=== PATIENT | female | born 1980 | race American Indian/Alaskan Native ===

== ENCOUNTER 2017-03-06 20:01 | Emergency (ER) | payer OTHER ==
[2017-03-06 20:46] LABS: Basophils % (Auto) 0.3 % (0.0-1.8); Eosinophils % (Auto) 1.2 % (0.0-4.3); Hematocrit 38.1 % (30.3-42.9); Hemoglobin 12.3 gm/dl (10.1-14.3); Mean Corpuscular HGB Conc 32 % (30-34); Mean Corpuscular Hemoglobin 26 pg (28-32); Mean Corpuscular Volume 80 fl (79-97); Platelet Count 343 K/mm3 (140-440); Red Blood Count 4.74 M/mm3 (3.65-5.03); White Blood Count 7.2 K/mm3 (4.5-11.0)
[2017-03-06 20:56] LABS: Anion Gap 21 mmol/L; Blood Urea Nitrogen 9 mg/dL (7-17); Calcium 9.2 mg/dL (8.4-10.2); Carbon Dioxide 22 mmol/L (22-30); Chloride 94.6 mmol/L (98-107); Glucose 267 mg/dL (65-100); Sodium 134 mmol/L (137-145)
[2017-03-06 21:15] LABS: Bilirubin,Urine NEG (Negative); Blood,Urine NEG (Negative); Ketones,Urine TR mg/dL (Negative); Leukocyte Esterase,Urine NEG (Negative); Nitrite,Urine NEG (Negative); Protein,Urine <15 mg/dL mg/dL (Negative); Urobilinogen,Urine < 2.0 mg/dL (<2.0)
[2017-03-06] MEDS ORDERED: NACL 0.9% 1000 ML 1,000 ML IV ONE (22:02)
--- NOTE | 2017-03-07 01:10 | Emergency Department Report ---
HPI - General Chief Complaint: Hyperglycemia Time Seen by Provider: 03/06/17 22:01 - HPI HPI: The patient is a 36 yo , EGA 6 weeks, with a history of gestational diabetes , who presents for evaluation of polyuria. The patient states that for >1 week she has experienced constant and severe polyuria and uncontrolled blood sugar with oral hypoglycemics. The patient denies fever, chills, night sweats, chest pain, dyspnea, vomiting, blood in the stool, diarrhea, blood in the stool, dark tarry stool, dysuria, hematuria, flank pain, genital discharge, inability to pass flatus. ED Past Medical Hx - Past Medical History Hx Diabetes: Yes Hx Headaches / Migraines: Yes - Surgical History Past Surgical History?: No - Social History Smoking Status: Never Smoker Substance Use Type: None ED Review of Systems ROS: Stated complaint: PREG 9WEEKS/HIGH GLUCOSE Other details as noted in HPI Constitutional: denies: fever ENT: denies: throat or neck pain Respiratory: denies: cough, shortness of breath Cardiovascular: denies: chest pain Endocrine: reports polyuria denies unexplained weight loss or gain Gastrointestinal: denies: abdominal pain, nausea Genitourinary: denies: dysuria Musculoskeletal: denies: leg swelling Skin: denies: rash Neurological: denies: headache Hematological/Lymphatic: denies: easy bleeding or easy bruising Psych: denies sadness or hopelessness Physical Exam - Physical Exam Vital Signs: Vital Signs 03/06/17 03/06/17 03/06/17 20:14 21:36 23:12 Temperature 98.2 F Pulse Rate 89 82 Respiratory 18 18 17 Rate Blood Pressure 121/76 O2 Sat by Pulse 100 99 100 Oximetry 03/06/17 03/06/17 03/06/17 23:16 23:30 23:46 Temperature Pulse Rate 89 80 83 Respiratory 23 16 13 Rate Blood Pressure 123/69 123/69 123/69 O2 Sat by Pulse 100 100 100 Oximetry 03/07/17 03/07/17 03/07/17 00:00 00:12 00:16 Temperature Pulse Rate 81 85 90 Respiratory 22 21 18 Rate Blood Pressure 112/67 112/67 112/67 O2 Sat by Pulse 100 100 100 Oximetry Physical Exam: General: well-nourished, well-developed, no acute distress Head: Normocephalic, atraumatic Eyes: normal sclera ENT: Mucous membranes are pale and dry Neck: No neck stiffness, no cervical adenopathy Respiratory: Breath sounds equal bilaterally, no wheezing, rales, or rhonchi Cardio: S1 and S2 present, no murmurs, rubs, gallops, capillary refill is delayed Abdomen: Normoactive bowel sounds, soft abdomen, no rigidity, no guarding or rebound tenderness Musc: No pitting edema Skin: No rash Neuro: no facial drooping, normal speech Psych: Normal affect ED Course Vital Signs 03/06/17 03/06/17 03/06/17 20:14 21:36 23:12 Temperature 98.2 F Pulse Rate 89 82 Respiratory 18 18 17 Rate Blood Pressure 121/76 O2 Sat by Pulse 100 99 100 Oximetry 03/06/17 03/06/17 03/06/17 23:16 23:30 23:46 Temperature Pulse Rate 89 80 83 Respiratory 23 16 13 Rate Blood Pressure 123/69 123/69 123/69 O2 Sat by Pulse 100 100 100 Oximetry 03/07/17 03/07/17 03/07/17 00:00 00:12 00:16 Temperature Pulse Rate 81 85 90 Respiratory 22 21 18 Rate Blood Pressure 112/67 112/67 112/67 O2 Sat by Pulse 100 100 100 Oximetry ED Medical Decision Making - Lab Data Result diagrams: 03/06/17 20:25 03/06/17 20:25 - Medical Decision Making The patient was seen and examined by myself. The patient is placed on a quality assurance monitor and continuous pulse ox. On initial evaluation, the patient was found to be in no distress. Evaluation orders were placed. The patient is given 1 L normal saline fluid bolus for treatment of dehydration. The patient is given 5 units of insulin IV for treatment of her hyperglycemia. Lab results revealed blood sugar 260, with normal bicarbonate and anion gap, not consistent with DKA, and otherwise were grossly unremarkable. A repeat Accu-Chek is performed and the patient's found to have normal blood sugar of 148. Dr. Wright the [facility] [employer] on-call for the patient's MFM group was contacted. She submitted that the patient does not require inpatient admission and is stable for follow-up outpatient. The patient was reevaluated and reported that their symptoms were improved. The patient is stable for discharge with outpatient follow-up. The patient is given follow-up and return instructions. The patient expressed understanding and agreed with the plan. The patient is discharged in stable condition. Critical care attestation.: If time is entered above; I have spent that time in minutes in the direct care of this critically ill patient, excluding procedure time. ED Disposition Clinical Impression: Acute hyperglycemia, Dehydration Gestational diabetes mellitus Qualifiers: Gestational diabetes mellitus control: oral hypoglycemic-controlled Trimester: first trimester Qualified Code(s): O24.415 - Gestational diabetes mellitus in , controlled by oral hypoglycemic drugs Disposition: DISCHARGED TO HOME OR SELFCARE Is pt being admited?: No Does the pt Need Aspirin: No Condition: Stable Instructions: Diabetes Mellitus Type 2 in Adults (ED), Gestational Diabetes (ED ), Dehydration (ED) Referrals: NICOLE WRIGHT MD [Staff Physician] - 3-5 Days Time of Disposition: 01:04
[2017-03-07 01:34] VITALS: BP 108/55
== END 2017-03-07 01:30 | disposition home or self-care (01) ==
LOC: ED 20:01
DX: O24.415 Gestational diabetes mellitus in pregnancy, controlled by oral hypoglycemic drugs (principal); E86.0 Dehydration; Z3A.01 Less than 8 weeks gestation of pregnancy; G43.909 Migraine, unspecified, not intractable, without status migrainosus
CPT/HCPCS: 36415; 80048; 81001; 82805; 82962; 85025; 96361; 96374; 99284; J7030; J1815

== ENCOUNTER 2017-10-08 21:08 | Inpatient (IN) | payer OTHER ==
[2017-10-08] MEDS ORDERED: LACTATED RINGERS 1,000 ML IV SCH (23:45)
[2017-10-08] MEDS ORDERED: STADOL IV PRN (23:54)
[2017-10-08] MEDS ORDERED: CERVIDIL VG ONE (23:54)
[2017-10-08] MEDS ORDERED: AMBIEN PO PRN (23:54)
[2017-10-09 01:16] LABS: Hematocrit 30.1 % (30.3-42.9); Mean Corpuscular HGB Conc 33 % (30-34); Mean Corpuscular Volume 76 fl (79-97); Platelet Count 293 K/mm3 (140-440); Red Blood Count 3.98 M/mm3 (3.65-5.03); Red Cell Distribution Width 14.7 % (13.2-15.2)
[2017-10-09 01:29] LABS: Mean Corpuscular Hemoglobin 25 pg (28-32)
[2017-10-09] MEDS ORDERED: D5LR 1,000 ML IV ONE (06:26)
[2017-10-09] MEDS ORDERED: D5LR 1,000 ML IV SCH (06:36)
[2017-10-09] MEDS ORDERED: ePHEDrine SULFATE IV PRN ×2 (11:09→20:26)
[2017-10-09] MEDS ORDERED: XYLOCAINE 2% INFILTRATI ONE (11:09)
[2017-10-09] MEDS ORDERED: BRETHINE SUB-Q PRN (11:09)
[2017-10-09] MEDS ORDERED: BRETHINE IVP PRN (11:09)
[2017-10-09] MEDS ORDERED: MINERAL OIL PO PRN (11:09)
[2017-10-09] MEDS ORDERED: PITOCin/NS 20 UNIT/1000ML DRIP 20 UNITS/1,000 ML BAG IV SCH (12:00)
[2017-10-09] MEDS ORDERED: PITOCin/NS 30 UNIT/500ML 30 UNITS/500 ML BAG IV SCH (13:00)
[2017-10-09] MEDS: LACTATED RINGERS 1,000 ML IV SCH ×3 (15:28→21:58)
[2017-10-09] MEDS: SUBLIMAZE IV PRN (18:38)
--- NOTE | 2017-10-09 19:12 | History and Physical Report ---
History of Present Illness Date of examination: 10/08/17 Date of admission: 10/08/17 21:08 Chief complaint: I'm here for induction History of present illness: Patient is a 37 year old who presents for induction of labor at 38 weeks with EDc 10/23/2017. course complicated by the following: AMA, history of labor and type 2 diabetes.. Patient has had moderate control and has been on insulin since 22 weeks. She entered care at 8 weeks. Patient had initial delivery at 24 weeks and did not survive. Past History Past Medical History: diabetes Past Surgical History: cholecystectomy [employer]PRESENTATIVE History: herpes Social history: - Obstetrical History Expected Date of Delivery: 10/22/17 Actual Gestation: 38 Week(s) 5 Day(s) : 2 Para: 1 Number of Pregnancies: 1 Number of Living Children: 0 Medications and Allergies Allergies Allergy/AdvReac Type Severity Reaction Status Date / Time No Known Allergies Allergy Verified 10/08/17 23:57 Home Medications Medication Instructions Recorded Confirmed Last Taken Type Aspirin 1 tab PO DAILY 10/09/17 10/09/17 1 Day Ago History ~10/08/17 Insulin Aspart Prot/Aspart(Nf) 40 units SQ QAM 10/09/17 10/09/17 1 Day Ago History [Novolog Mix 70/30] ~10/08/17 NovoLIN N 50 unit SQ DAILY 10/09/17 10/09/17 1 Day Ago History ~10/08/17 Vit,Calc76/Iron/Folic 1 each PO DAILY 10/09/17 10/09/17 1 Day Ago History [Pnv 29-1 Tablet] ~10/08/17 Valtrex 1 tab PO DAILY 10/09/17 10/09/17 1 Day Ago History ~10/08/17 Docusate Sodium [Colace] 100 mg PO BID PRN #60 capsule 10/11/17 Unknown Rx Ferrous Sulfate [Feosol 325 MG tab] 325 mg PO BID #60 tablet 10/11/17 Unknown Rx Ibuprofen [Motrin] 800 mg PO Q8HR PRN #40 tablet 10/11/17 Unknown Rx Oxycodone HCl/Acetaminophen 1 each PO Q6HR PRN #50 tablet 10/11/17 Unknown Rx [Percocet 7.5/325 mg] Active Meds: Active Medications Butorphanol Tartrate (Stadol) 2 mg IV Q2H PRN PRN Reason: Labor Pain Last Admin: 10/09/17 16:01 Dose: 2 mg Ephedrine Sulfate (Ephedrine Sulfate) 10 mg IV Q2M PRN PRN Reason: Hypotension Fentanyl (Sublimaze) 100 mcg IV Q2H PRN PRN Reason: Labor Pain Last Admin: 10/09/17 18:38 Dose: 100 mcg Dextrose/Lactated Ringer's (D5lr) 1,000 mls @ 125 mls/hr IV DIRECT NORMA Lactated Ringer's (Lactated Ringers) 1,000 mls @ 125 mls/hr IV DIRECT NORMA Last Admin: 10/09/17 15:28 Dose: 125 mls/hr Oxytocin/Sodium Chloride (Pitocin/Ns 20 Unit/1000ml Drip) 20 units in 1,000 mls @ 125 mls/hr IV DIRECT NORMA Oxytocin/Sodium Chloride (Pitocin/Ns 30 Unit/500ml) 30 units in 500 mls @ 2 mls /hr IV TITR NORMA PRN Reason: Protocol Last Titration: 10/09/17 18:02 Dose: 10 ml/hr, 10 mls/hr Mineral Oil (Mineral Oil) 30 ml PO QHS PRN PRN Reason: Constipation Terbutaline Sulfate (Brethine) 0.25 mg SUB-Q ONCE PRN PRN Reason: Hyperstimulation/Hypertonicity Terbutaline Sulfate (Brethine) 0.25 mg IVP ONCE PRN PRN Reason: Hyperstimulation/Hypertonicity Zolpidem Tartrate (Ambien) 10 mg PO QHS PRN PRN Reason: Insomnia Last Admin: 10/09/17 00:55 Dose: 10 mg - Vital Signs Vital signs: Vital Signs Pulse BP 118 H 132/84 10/08/17 22:05 10/08/17 22:05 Temp Pulse Resp BP Pulse Ox 97.5 F L 92 H 18 124/75 94 10/09/17 17:32 10/09/17 15:31 10/09/17 18:38 10/09/17 15:31 10/09/17 02:41 - Physical Exam Breasts: Cardiovascular: Regular rate, Normal S1, Normal S2 Lungs: Positive: Clear to auscultation, Normal air movement Abdomen: Positive: normal appearance, soft, normal bowel sounds. Negative: distention, tenderness Genitourinary (Female): Positive: normal external genitalia, normal perenium Vulva: both: normal Vagina: Positive: normal moisture. Negative: discharge Cervix: Negative: lesion, discharge Uterus: Positive: normal size, normal contour Adnexa: both: normal Anus/Rectum: Positive: normal perianal skin, heme negative. Negative: rectal mass, hemorrhoids Extremities: Deep Tendon Reflex Grade: Normal +2 - Obstetrical Cervical Dilatation: 0.5 Cervical Effacement Percentage: 50 station: -3 Uterine Contraction Pattern: Irregular Results Result Diagrams: 10/10/17 19:22 Abnormal lab results 10/08/17 10/09/17 10/09/17 Range/Units 00:25 05:56 07:44 Hgb 10.0 L (10.1-14.3) gm/dl Hct 30.1 L (30.3-42.9) % MCV 76 L (79-97) fl MCH 25 L (28-32) pg POC Glucose 43 L 116 H (70-105) All other labs normal. Assessment and Plan IUP at 38 weeks for induction of labor due to type 2 diabetes. Admit for induction. Place cervidil. Anticipate .
--- NOTE | 2017-10-09 20:25 | Anesthesia Consultation ---
Anesthesia Consult and Med Hx Date of service: 10/09/17 - Airway Anesthetic Teeth Evaluation: Good ROM Head & Neck: Adequate Mental/Hyoid Distance: Adequate Mallampati Class: Class II Intubation Access Assessment: Good - Pulmonary Exam CTA: Yes - Cardiac Exam Cardiac Exam: No Murmur - Pre-Operative Health Status ASA Pre-Surgery Classification: ASA2 Proposed Anesthetic Plan: Epidural - Pulmonary Hx Asthma: No COPD: No Hx Pneumonia: No - Cardiovascular System Hx Hypertension: No - Central Nervous System Hx Seizures: No Hx Psychiatric Problems: No - Endocrine Hx Renal Disease: No Hx End Stage Renal Disease: No Hx Hypothyroidism: No Hx Hyperthyroidism: No - Hematic Hx Anemia: No Hx Sickle Cell Disease: No - Other Systems Hx Alcohol Use: No
[2017-10-09] MEDS ORDERED: NARCAN 2 MG/2 ML IV PRN (20:26)
[2017-10-09] MEDS: fentaNYL-BUPIV 2 MCG/ML-0.125% 200 MCG/100 ML BAG EPIDURAL SCH (20:40)
[2017-10-10] MEDS ORDERED: XYLOCAINE 2% INFILTRATI ONE ×2 (02:06→03:55)
[2017-10-10] MEDS: fentaNYL-BUPIV 2 MCG/ML-0.125% 200 MCG/100 ML BAG EPIDURAL SCH (03:57)
[2017-10-10] MEDS: SUBLIMAZE IV PRN (04:56)
[2017-10-10] MEDS: LACTATED RINGERS 1,000 ML IV SCH ×2 (05:39→17:24)
[2017-10-10] MEDS ORDERED: BICITRA PO ONE (06:24)
[2017-10-10] MEDS ORDERED: PEPCID IV ONE (06:24)
[2017-10-10] MEDS ORDERED: REGLAN IV ONE (06:24)
--- NOTE | 2017-10-10 06:24 | Event Note ---
Date: 10/10/17 Patient AROM at 1835 last evening and progressed to 9cm. Patient's pain control has been inconsistent. Patient is now exhauseted and stressed to due too much pain and is requesting a . Will proceed with same for failure to progress.
[2017-10-10] MEDS ORDERED: ANCEF/STERILE WATER 2 GM/20 ML IV ONE (06:52)
[2017-10-10] MEDS ORDERED: ANCEF/STERILE WATER 2 GM/20 ML 2 GM/20 ML SYRINGE IV NR (07:00)
[2017-10-10] MEDS ORDERED: PITOCin/NS 20 UNIT/1000ML DRIP 20 UNITS/1,000 ML BAG IV SCH ×2 (07:00→10:24)
[2017-10-10] MEDS ORDERED: LACTATED RINGERS 1,000 ML IV SCH (07:00)
[2017-10-10] MEDS ORDERED: WATER FOR IRRIG STERILE IR ONE (07:05)
[2017-10-10] MEDS ORDERED: NACL 0.9% IR ONE (07:05)
[2017-10-10] MEDS ORDERED: XYLOCAINE MPF 2% ONE ×4 (07:10)
[2017-10-10] MEDS ORDERED: SUBLIMAZE ONE (07:24)
[2017-10-10] MEDS ORDERED: VERSED ONE (07:48)
[2017-10-10] MEDS ORDERED: NEO SYNEPHRINE/NS Syringe(OR USE) IV ONE (07:49)
[2017-10-10] MEDS ORDERED: ZOFRAN ONE (07:52)
[2017-10-10] MEDS ORDERED: TORADOL ONE (07:52)
[2017-10-10] MEDS ORDERED: MORPHINE ONE ×2 (07:53)
--- NOTE | 2017-10-10 08:22 | Procedure Note ---
OB Delivery Note - Delivery Date of Delivery: 10/10/17 Surgeon: KENN BRUNSON Crystal Finisher: BRIELLE HICKMAN Estimated blood loss: other (700) - Section Preop diagnosis: arrest of descent Postop diagnosis: same section procedure: primary low transverse, other (myomectomy) Disposition: PACU Narrative: see op report - Infant A at 1 minute: 8 at 5 minutes: 9 Infant Gender: Female (9 pounds 1 ounce 4117g)
[2017-10-10] MEDS ORDERED: NARCAN 0.4 MG/1 ML IV PRN ×2 (08:33→10:24)
--- NOTE | 2017-10-10 08:48 | Post Anesthesia Evaluation ---
- Post Anesthesia Evaluation Patient Participated: Yes Airway Patent: Yes Stable Respiratory Function: Yes Nausea/Vomiting: No Temp > 96.8F: Yes Pain Manageable: Yes Adequeate Hydration: Yes Anesthesia Complications: No Block Receding Appropriately: Yes Patient on Ventilator: No
[2017-10-10] MEDS ORDERED: BENADRYL IV PRN (08:49)
[2017-10-10] MEDS ORDERED: SODIUM CHLORIDE FLUSH SYRINGE 10 ML IV NR ×2 (09:00→10:24)
[2017-10-10] MEDS ORDERED: DILAUDID PCA 6MG/30ML IV SCH (09:00)
[2017-10-10] MEDS ORDERED: TUCKS PAD TP PRN (10:24)
[2017-10-10] MEDS ORDERED: ZOFRAN IV PRN (10:24)
[2017-10-10] MEDS ORDERED: LANSINOH TP PRN (10:24)
[2017-10-10] MEDS ORDERED: MYLICON PO PRN (10:24)
[2017-10-10 19:40] LABS: Hemoglobin 7.5 gm/dl (10.1-14.3)
[2017-10-11] MEDS: LACTATED RINGERS 1,000 ML IV SCH (00:11)
[2017-10-11] MEDS: MORPHINE IV PRN ×2 (08:15→14:35)
[2017-10-11] MEDS: PERCOCET 5/325 PO PRN ×3 (08:30→17:42)
--- NOTE | 2017-10-11 11:10 | Progress Note ---
Subjective Date of service: 10/11/17 Interval history: No anesthetic related complaints. Objective - Constitutional Vitals: Vital Signs - 12hr 10/11/17 10/11/17 10/11/17 00:12 00:56 01:19 Temperature 98.5 F Pulse Rate 125 H 100 H Respiratory 18 20 20 Rate Blood Pressure 137/74 O2 Sat by Pulse Oximetry 10/11/17 10/11/17 10/11/17 04:17 05:29 06:35 Temperature 99.0 F Pulse Rate 112 H Respiratory 20 20 20 Rate Blood Pressure 121/71 O2 Sat by Pulse 94 Oximetry 10/11/17 08:22 Temperature 98.4 F Pulse Rate 112 H Respiratory 18 Rate Blood Pressure 132/83 O2 Sat by Pulse 97 Oximetry - Labs CBC & Chem 7: 10/10/17 19:22 Labs: Abnormal lab results 10/10/17 10/10/17 10/10/17 Range/Units 15:27 19:22 21:31 Hgb 7.5 L (10.1-14.3) gm/dl Hct 24.0 L D (30.3-42.9) % POC Glucose 196 H 151 H (70-105)
[2017-10-11] MEDS: MOTRIN PO PRN ×2 (12:28→20:44)
[2017-10-11] MEDS: PRENATAL VITAMIN PO SCH (17:36)
[2017-10-11] MEDS: FEOSOL PO SCH (17:36)
[2017-10-11] MEDS: MILK OF MAGNESIA PO PRN (20:44)
--- NOTE | 2017-10-11 21:14 | Progress Note ---
Assessment and Plan PPD 1 s/p . Doing well except for no flatus. Will continue simethicone and possible suppository to help pass gas. Subjective - Subjective Date of service: 10/11/17 Interval history: Patient is a 37 year old who presents for induction of labor at 38 weeks with EDc 10/23/2017. course complicated by the following: AMA, history of labor and type 2 diabetes.. Patient has had moderate control and has been on insulin since 22 weeks. She entered care at 8 weeks. Patient had initial delivery at 24 weeks and infant did not survive. Patient reports: appetite normal, voiding normally, pain well controlled, ambulating normally : doing well Objective - Vital Signs Latest vital signs: Vital Signs Temp Pulse Resp BP Pulse Ox 10/11/17 20:44 18 10/11/17 17:13 97.5 F L 101 H 18 125/80 97 10/11/17 11:37 98.8 F 108 H 18 100/65 96 10/11/17 08:22 98.4 F 112 H 18 132/83 97 10/11/17 06:35 99.0 F 112 H 20 121/71 94 10/11/17 05:29 20 10/11/17 04:17 20 10/11/17 01:19 100 H 20 10/11/17 00:56 98.5 F 125 H 20 137/74 10/11/17 00:12 18 10/10/17 22:36 120 H 20 Intake and Output 10/11/17 10/11/17 10/11/17 06:59 14:59 22:59 Intake Total 847.917 280 Output Total 350 Balance 497.917 280 Intake: IV 847.917 Lactated Ringers 1,000 ml 847.917 @ 125 mls/hr IV DIRECT NORMA Rx#:[id number] Oral 280 Output: Urine 350 Void 350 Other: Total, Intake Amount 280 Total, Output Amount 350 # Voids Indwelling Catheter 1 - Exam Cardiovascular: Present: Regular rate, Normal S1, Normal S2 Lungs: Present: Clear to auscultation, Normal air movement Abdomen: Present: normal appearance, distention, normal bowel sounds Uterus: Present: normal, firm. Absent: fundal height below umbilicus Extremities: Present: normal Incision: Present: normal, dry, intact - Labs Labs: Abnormal lab results 10/10/17 10/11/17 Range/Units 21:31 10:55 POC Glucose 151 H 120 H (70-105)
[2017-10-12] MEDS: PERCOCET 5/325 PO PRN ×3 (00:23→19:45)
[2017-10-12] MEDS ORDERED: M-M-R II VACCINE SUB-Q ONE (06:00)
[2017-10-12] MEDS ORDERED: BOOSTRIX IM ONE (06:00)
[2017-10-12] MEDS: MOTRIN PO PRN ×2 (06:48→15:49)
[2017-10-12] MEDS: PRENATAL VITAMIN PO SCH ×2 (10:59→11:00)
[2017-10-12] MEDS: FEOSOL PO SCH (11:00)
[2017-10-12] MEDS: MILK OF MAGNESIA PO PRN (15:52)
[2017-10-13] MEDS: PERCOCET 5/325 PO PRN (04:10)
[2017-10-13] MEDS: MOTRIN PO PRN (04:11)
--- NOTE | 2017-10-13 09:14 | Progress Note ---
Assessment and Plan POD 3 s/p ltcs. Doing well. Continue routine care. Plan for discharge on today. Subjective - Subjective Date of service: 10/13/17 Interval history: Patient is a 37 year old who presents for induction of labor at 38 weeks with EDc 10/23/2017. course complicated by the following: AMA, history of labor and type 2 diabetes.. Patient has had moderate control and has been on insulin since 22 weeks. She entered care at 8 weeks. Patient had initial delivery at 24 weeks and did not survive. Patient reports: appetite normal, voiding normally, pain well controlled, flatus , bowel movement, ambulating normally [place]: doing well Objective - Vital Signs Latest vital signs: Vital Signs Temp Pulse Resp Resp BP Pulse Ox 10/13/17 01:39 98.2 F 104 H 20 116/69 98 10/12/17 20:00 18 10/12/17 16:25 98.5 F 100 H 20 130/83 99 10/12/17 15:49 18 10/12/17 15:48 20 Intake and Output 10/12/17 10/13/17 10/13/17 22:59 06:59 14:59 Intake Total 240 Balance 240 Intake: Oral 240 Other: Total, Intake Amount 240 Voiding Method Toilet # Voids Void 1 - Exam Cardiovascular: Present: Regular rate, Normal S1, Normal S2 Lungs: Present: Clear to auscultation, Normal air movement Abdomen: Present: normal appearance, soft Extremities: Present: normal Incision: Present: normal, dry, intact - Labs Labs: Abnormal lab results 10/12/17 Range/Units 12:42 POC Glucose 112 H (70-105)
--- NOTE | 2017-10-13 09:17 | Discharge Summary ---
Providers - Providers Date of Admission: 10/08/17 21:08 Date of discharge: 10/13/17 Attending physician: KENN BRUNSON Primary care physician: KENN BRUNSON Hospitalization Reason for admission: induction of labor, other (type 2 diabetes) Delivery: Procedure: primary low transverse Incision: normal, dry, intact Other procedures: none complications: none Discharge diagnosis: IUP at term delivered [place] baby: female Hospital course: unremarkable Condition at discharge: Good Disposition: DC-01 TO HOME OR SELFCARE Plan - Discharge Medications Prescriptions: Docusate Sodium [Colace] 100 mg PO BID PRN #60 capsule PRN Reason: Constipation Ferrous Sulfate [Feosol 325 MG tab] 325 mg PO BID #60 tablet Ibuprofen [Motrin] 800 mg PO Q8HR PRN #40 tablet PRN Reason: Pain Oxycodone HCl/Acetaminophen [Percocet 7.5/325 mg] 1 each PO Q6HR PRN #50 tablet PRN Reason: Pain - Provider Discharge Summary Activity: routine, no sex for 6 weeks, no heavy lifting 4 weeks, no strenuous exercise Diet: routine Instructions: other (continue to check and record blood sugar at home) Additional instructions: [] Smoking cessation referral if applicable(refer to patient education folder for contact #) [] Refer to [facility] Booklet Call your doctor immediately for: * Fever > 100.5 * Heavy vaginal bleeding ( >1 pad per hour) * Severe persistent headache * Shortness of breath * Reddened, hot, painful area to leg or breast * Drainage or odor from incision. * Keep incision clean and dry at all times and follow doctor's instructions regarding bathing/showering - Follow up plan Follow up: KENN BRUNSON MD [Primary Care Provider] - 7 Days
[2017-10-13 13:43] VITALS: BP 115/76
--- NOTE | 2017-10-14 12:37 | Operative Report ---
Operative Report Operative Report: The operative report for patient Kayce Boyd Date of service 10/10/2017 Preoperative diagnosis: Intrauterine at 38 2/7 weeks 2. Type 2 diabetes moderately controlled 3 Arrest of descent 4. Failed induction 5. Multiple uterine fibroids Postoperative diagnosis: Same Procedure:1. Primary low transverse section 2. Myomectomy of subserosal fibroid Surgeon: Dr. Luann Howe EBL: 700 Urine output: 100 IV fluids: 1200 Findings: Viable female in the vertex occiput posterior position. Weight 9 lbs. 1oz. 3576 g . Multiple uterine fibroids Specimens: 5 cm subserosal fibroid Complications: None Procedure: The patient was admitted to the OR with IV running and in place. She was properly identified as herself. Her spinal had been placed in the room and she was already under the effects of anesthesia upon entry into the OR. She was placed in the dorsal supine position with a leftward tilt. A Shook catheter was inserted prior to coming to the OR. She was then prepped and draped in the normal sterile fashion. An Allis test was used to confirm adequate anesthesia. Once confirmed, the incision was made with the scalpel and carried to the underlying fascia using the scalpel and the Bovie. The fascia was incised in the midline and incision was extended bilaterally using the curved Pérez scissors. The fascia was then dissected from the underlying rectus muscles in a series of sharp and blunt dissection using the Pérez scissors. Muscles were in the in the midline sharply using Metzenbaum scissors and the peritoneum was entered into bluntly using the surgeon's fingers. A bladder blade was then placed into the incision to protect the bladder. Following this the bladder flap was created. Hysterotomy incision was then made in the scalpel. Upon uterine entry, the amniotic sac was ruptured for clear fluid. The was then delivered in the occiput [ posterior] position. Her mouth and nose were suctioned on the field. The cord was clamped and cut and he was handed to the waiting NICU personnel. The uterus was then exteriorized and cleared of all clots and debris. The hysterotomy incision was then closed in a running locked fashion using 0 Vicryl in 2 layers. The abdomen was then copiously irrigated with warm normal saline. A large subserosal fibroid was noted to be inhibiting placement of the uterus back into the cavity. Multiple thin adhesions of the omentum were then lysed from the surface of the fibroid. The base of the fibroid was then crossclamped with Mary Kate clamps and then amputated. The underlying serosa was incised in a baseball stitch with 2-0 Vicryl. Following this the uterus was replaced into the abdominal cavity. At this point the muscles were reapproximated in the midline using individual sutures of 0 Vicryl. Following this the fascia was closed in a running fashion using 0 Vicryl. Tissue was then copiously irrigated. Skin was closed in a running fashion using 3-0 Monocryl. The sponge lap needle and instrument counts were correct 2. The patient tolerated the procedure well. She was taken to recovery in stable condition.
== END 2017-10-13 12:00 | disposition home or self-care (01) | DRG 766 ==
LOC: LD 21:08 → OB 10-10 09:48
PROVIDERS: ADMIT Obstetrics & Gynecology; ATTEND Obstetrics & Gynecology
PROC: 10D00Z1 Extraction of Products of Conception, Low, Open Approach (ICD-10-PCS; principal; 2017-10-10)
PROC: 0UB90ZZ Excision of Uterus, Open Approach (ICD-10-PCS; 2017-10-10)
PROC: 3E0234Z Introduction of Serum, Toxoid and Vaccine into Muscle, Percutaneous Approach (ICD-10-PCS; 2017-10-12)
DX: O24.92 Unspecified diabetes mellitus in childbirth (principal); O62.0 Primary inadequate contractions; D25.9 Leiomyoma of uterus, unspecified; O34.13 Maternal care for benign tumor of corpus uteri, third trimester; Z37.0 Single live birth; Z90.49 Acquired absence of other specified parts of digestive tract; Z3A.38 38 weeks gestation of pregnancy; Z79.4 Long term (current) use of insulin; Z23 Encounter for immunization
CPT/HCPCS: 36415; 82962; 85014; 85018; 85027; 86592; 86850; 86900; 86901; 88305; 90471; 90472; 90707; 90715; 99211; G0463; J0595; J0690; J1170; J1815; J1885; J2250; J2270; J2370; J2405; J2590; J2765; J3010; J7120; J7121